=== PATIENT | female | born 1945 | race Caucasian/White ===

== ENCOUNTER 2023-03-14 09:32 | Emergency (ER) | payer OTHER, MEDICARE ==
[~2023-03-14] VITALS: Ht 154.9 cm; Wt 68.0 kg
[~2023-03-14 09:32] MED LIST: HYDR12.5 PO; LISI20TA30 PO
[2023-03-14 09:35] VITALS: BP_SYST 108; PULSE 66; RESP 18; TEMP 97.8; O2SAT 99
[2023-03-14] MEDS ORDERED: ACYC-133 PO (09:51)
[2023-03-14] MEDS ORDERED: NEOM28.37 TP (09:51)
[2023-03-14 10:22] VITALS: BP_SYST 108; PULSE 66; RESP 18; TEMP 97.8; O2SAT 99
== END 2023-03-14 10:20 | disposition home or self-care (01) ==
LOC: SED 09:32
DX: B02.9 Zoster without complications (principal); R21 Rash and other nonspecific skin eruption; I10 Essential (primary) hypertension; Z85.3 Personal history of malignant neoplasm of breast; Z79.899 Other long term (current) drug therapy
CPT/HCPCS: 99283